=== PATIENT | female | born 1990 | race Caucasian/White ===

== ENCOUNTER 2016-10-11 14:08 | Emergency (ER) | payer BC ==
[2016-10-11 14:37] VITALS: BP 117/73
--- NOTE | 2016-10-11 16:08 | UC ---
Abdominal Pain Female HPI - HPI Summary HPI Summary: PT C/O LOW ABDOMINAL CRAMPING AND LOW BACK PAIN FOR THE PAST WEEK. EPISODES A COUPLE OF TIMES PER DAY LASTING ABOUT 5 MINUTES. PT IS CURRENTLY 33 WEEKS. FOLLOWS WITH [employer] AT [employer]. HAS HAD A FEW DAYS OF SINUS PRESSURE, RITTER AND ST AND CHILLS. FEELS "FLUSHED" AT TIMES BUT NO DOCUMENTED FEVERS. MOVEMENTS ARE NORMAL. NO VAGINAL BLEEDING OR LEAKING FLUID. PT HAS LOWER UTERINE TENDERNESS. - History of Current Complaint Chief Complaint: UCAbdominalPain Stated Complaint: 34 WKS HEADACH RESP Time Seen by Provider: 10/11/16 14:41 Hx Obtained From: Patient, Family/Manager Web - ?: Yes Onset/Duration: Sudden Onset, Lasting Days, Still Present Timing: Intermittent Episodes Lasting: Severity Initially: Moderate Severity Currently: Moderate Pain Intensity: 4 Pain Scale Used: 0-10 Numeric Location: Suprapubic Radiates: Yes Radiates to: Back Character: Cramping Aggravating Factor(s): Nothing Alleviating Factor(s): Spontaneous Resolution Associated Signs and Symptoms: Positive: Back Pain. Negative: Cough, Constipation, Blood in Stool, Urinary Symptoms, Vaginal Bleeding, Vaginal Discharge, Nausea, Vomiting, Diarrhea Allergies/Adverse Reactions: Allergies Allergy/AdvReac Type Severity Reaction Status Date / Time No Known Allergies Allergy Verified 10/11/16 14:37 Home Medications: Home Medications Acetaminophen 500 mg PO PRN 10/11/16 [History] Vitamin TAB* 1 tab PO DAILY 10/11/16 [History Confirmed 10/11/16] PMH/Surg Hx/FS Hx/Imm Hx GI/ History Of: Reports: Gastroesophageal Reflux - Surgical History Surgical History: None - Family History Known Family History: Negative: Hypertension, Diabetes - Social History Alcohol Use: None Substance Use Type: None Smoking Status (MU): Never Smoked Tobacco Review of Systems Constitutional: Chills, Fatigue ENT: Sore Throat, Other - SINUS PRESSURE Respiratory: Negative Cardiovascular: Negative Gastrointestinal: Abdominal Pain Genitourinary: Negative Neurological: Headache All Other Systems Reviewed And Are Negative: Yes Physical Exam Triage Information Reviewed: Yes Appearance: Well-Appearing, No Pain Distress, Well-Nourished Vital Signs: Initial Vital Signs Temp 98.8 F 10/11/16 14:31 Pulse 81 10/11/16 14:31 Resp 16 10/11/16 14:31 BP 117/73 10/11/16 14:31 Pulse Ox 96 10/11/16 14:31 Vital Signs Reviewed: Yes Eyes: Positive: Conjunctiva Clear ENT: Positive: Hearing grossly normal, Pharynx normal, TMs normal, Other: - FLUID BEHIND BOTH TMS Neck: Positive: Supple, Nontender, No Lymphadenopathy Respiratory Exam: Normal Cardiovascular Exam: Normal Abdomen Description: Positive: Soft, Other: - GRAVID, MILDLY TTP LOWER ABDOMEN. UTERUS SOFT. FHT 140S Musculoskeletal: Positive: No Edema Neurological: Positive: Alert Psychological: Positive: Normal Response To Family, Age Appropriate Behavior Skin: Negative: rashes Diagnostics - Laboratory Diagnostic Studies Completed/Ordered: URINE DIP 1+ LEUKS. SENT FOR CULTURE Abd Pain Female Course/Dx - Differential Dx/Diagnosis Differential Diagnosis: Urinary Tract Infection Provider Diagnoses: 1. ACUTE SINUSITIS - LIKELY VIRAL. 2. UTERINE CRAMPING IN 3RD TRIMESTER - Physician Notification/Consults Discussed Patient Care With: DR. JEFFREY (OB) Time Discussed With Above Provider: 16:15 - AGREES WITH CAREFUL OBSERVATION AT HOME. KEEP OB APPT NEXT WEEK. CALL OB AND GO TO ER IF SX WORSEN. Discharge - Discharge Plan Condition: Stable Disposition: HOME Patient Education Materials: Sinusitis (ED), Abdominal Pain in (ED) Forms: *Work Release Referrals: Betzy Manzanares MD [Primary Care Provider] - If Needed Additional Instructions: YOUR SINUS INFECTION IS LIKELY VIRAL AND WILL RESOLVE ON ITS OWN. ILLNESS TENDS TO LAST LONGER WHEN . REST, HYDRATE, TYLENOL FOR DISCOMFORT NOT TO EXCEED 3 GRAMS IN 24 HOURS. CALL OB AND GO TO THE ER WITHOUT FAIL IF YOUR ABDOMINAL CRAMPING BECOMES WORSE OR MORE FREQUENT OR YOU HAVE VAGINAL BLEEDING, LEAKING FLUID OR IF BABY STOPS MOVING (OR FOR ANY OTHER CONCERNING SYMPTOMS).
== END 2016-10-11 16:32 | disposition home or self-care (01) ==
LOC: UCEAST 14:08
DX: O26.893 Other specified pregnancy related conditions, third trimester (principal); Z3A.34 34 weeks gestation of pregnancy; R10.30 Lower abdominal pain, unspecified; J01.90 Acute sinusitis, unspecified
CPT/HCPCS: 81003; 87086; 99211; G0463

== ENCOUNTER 2016-11-09 20:47 | Inpatient (IN) | payer BC ==
[2016-11-09 21:53] LABS: Hematocrit 39 % (35-47); Hemoglobin 12.8 g/dl (12.0-16.0); Mean Corpuscular HGB Conc 33 g/dl (31-36); Mean Corpuscular Hemoglobin 29 pg (27-31); Mean Corpuscular Volume 87 fL (80-97); Mean Platelet Volume 10 um3 (7.4-10.4); Red Blood Count 4.47 10^6/ul (4.0-5.4); Red Cell Distribution Width 14 % (10.5-15); White Blood Count 12.3 10^3/ul (3.5-10.8)
[2016-11-10] MEDS ORDERED: Promethazine INJ(RESTRICTED)* 25 MG/ML 1 ML VIAL ONE (01:05)
[2016-11-10] MEDS ORDERED: Nalbuphine* 20 MG/ML 1 ML VIAL ONE (01:08)
[2016-11-10] MEDS ORDERED: Promethazine INJ(RESTRICTED)* 25 MG/ML 1 ML VIAL IV PRN (01:23)
[2016-11-10] MEDS ORDERED: Nalbuphine* 20 MG/ML 1 ML VIAL IV PRN (01:23)
[2016-11-10] MEDS ORDERED: Oxytocin in LR* 20 UNITS/1,000 ML BAG IVPB ONE (11:16)
[2016-11-10] MEDS ORDERED: Acetaminophen TAB* 325 MG PO PRN (11:36)
[2016-11-10] MEDS ORDERED: Glycerin ADULT SUPP PR PRN (11:36)
[2016-11-10] MEDS ORDERED: Dibucaine 1% 28.35 GM TUBE PR PRN (11:36)
[2016-11-10] MEDS ORDERED: oxyCODONE/Acetamin 5/325 MG* TAB PO PRN (11:36)
[2016-11-10] MEDS ORDERED: Witch Hazel PAD* JAR TOPICAL PRN (11:36)
[2016-11-10] MEDS ORDERED: Ibuprofen TAB* 600 MG PO PRN (11:36)
[2016-11-10] MEDS ORDERED: Oxytocin in LR* 20 UNITS/1,000 ML BAG IVPB SCH (12:00)
[2016-11-10] MEDS: Docusate CAP* 100 MG PO SCH ×2 (13:24→21:39)
[2016-11-11 08:52] LABS: Hematocrit 35 % (35-47); Hemoglobin 11.6 g/dl (12.0-16.0); Mean Corpuscular HGB Conc 33 g/dl (31-36); Mean Corpuscular Hemoglobin 29 pg (27-31); Mean Corpuscular Volume 88 fL (80-97); Mean Platelet Volume 10 um3 (7.4-10.4); Red Blood Count 3.99 10^6/ul (4.0-5.4); Red Cell Distribution Width 14 % (10.5-15); White Blood Count 16.2 10^3/ul (3.5-10.8)
[2016-11-11] MEDS ORDERED: Ferrous Gluconate TAB* 324 MG TAB PO SCH (09:00)
[2016-11-11] MEDS: Docusate CAP* 100 MG PO SCH ×3 (09:15→20:54)
[2016-11-12] MEDS: Docusate CAP* 100 MG PO SCH (07:46)
[2016-11-12 08:28] VITALS: BP 125/82
== END 2016-11-12 12:44 | disposition home or self-care (01) | DRG 560 ==
LOC: MCHOBOUT 20:47 → MCHOB 11-10 00:02
PROVIDERS: ADMIT Nurse Practitioner; ATTEND Midwife
PROC: 10E0XZZ Delivery of Products of Conception, External Approach (ICD-10-PCS; principal; 2016-11-10)
PROC: 0W8NXZZ Division of Female Perineum, External Approach (ICD-10-PCS; 2016-11-10)
PROC: 0HQ9XZZ Repair Perineum Skin, External Approach (ICD-10-PCS; 2016-11-10)
PROC: 10907ZC Drainage of Amniotic Fluid, Therapeutic from Products of Conception, Via Natural or Artificial Opening (ICD-10-PCS; 2016-11-10)
DX: O70.0 First degree perineal laceration during delivery (principal); Z37.0 Single live birth; Z3A.38 38 weeks gestation of pregnancy
CPT/HCPCS: 36415; 84112; 85025; 85027; 86850; 86900; 86901; 99214; A9270-GY; G0463; J2300; J2550